=== PATIENT | female | born 1965 | race Caucasian/White ===

== ENCOUNTER 2017-03-03 09:12 | Emergency (ER) | payer OTHER | END 2017-03-03 11:20 | disposition home or self-care (01) | LOC: FER 09:12 | DX: J45.901 Unspecified asthma with (acute) exacerbation (principal); K21.9 Gastro-esophageal reflux disease without esophagitis; G25.81 Restless legs syndrome; F17.200 Nicotine dependence, unspecified, uncomplicated; Z88.8 Allergy status to other drugs, medicaments and biological substances; Z79.51 Long term (current) use of inhaled steroids; Z79.899 Other long term (current) drug therapy | CPT/HCPCS: 71010; 71020; 87804; 87899; 94640; J2930 ==

== ENCOUNTER → 2022-03-09 | Day surgery (SDC) | payer OTHER ==
[~2022-03-09] VITALS: Ht 162.6 cm; Wt 83.0 kg
[~2022-03-09] MED LIST: ABILIFY2 MG PO; AMITRIPTYLINE 775 MG PO; ASPIRIN EC81 M1 PO; ATORVASTATIN CA20 MG PO; BACLOFEN10 MG PO; BUSPIRONE HCL15 M1 PO; CETIRIZINE HCL10 MG PO; DICLOFENAC SODI75 MG PO; DULOXETINE HCL60 MG PO; FAMOTIDINE20 MG PO; FEROSUL325 MG PO; GABAPENTIN600 MG PO; HYDROCODON-ACE1 EAC2 PO; MONTELUKAST SOD10 MG PO; ROPINIROLE HCL1 MG PO; SYMBICORT 16010.2 GM INH
[2022-03-09 07:32] LABS: HCT 46.9 % (37.0-47.0); HGB 15.8 g/dl (12.5-16.0); MCH 31.4 pg (25.0-31.0); MCHC 33.7 g/dL (32.0-36.0); MCV 93.2 fL (78.0-100.0); MPV 10.6 fL (6.0-9.5); RBC 5.03 M/uL (4.20-5.40); RDW 13.1 % (11.5-14.0); WBC 10.9 K/uL (4.0-10.5)
[2022-03-09 07:43] LABS: ALBUMIN 3.8 g/dL (3.4-5.0); BILIRUBIN - TOTAL 0.2 mg/dL (0.2-1.0); BUN/CREAT RATIO (CALC) 19.1 RATIO; CREATININE 0.94 mg/dL (0.51-0.95); GLOBULIN (CALCULATION) 3.6 g/dL; POTASSIUM 4.7 mmol/L (3.5-5.1); TOTAL PROTEIN 7.4 g/dL (6.4-8.2)
== END | disposition home or self-care (01) ==
LOC: FAS 06:35
PROVIDERS: Orthopaedic Surgery
DX: S83.232A Complex tear of medial meniscus, current injury, left knee, initial encounter (principal); M17.12 Unilateral primary osteoarthritis, left knee; X58.XXXA Exposure to other specified factors, initial encounter
CPT/HCPCS: 36415; 80053; 93005; 97161; 97530-GP; J1100; J1170; J1885; J2250; J2405; J2704; J3010; J7120